=== PATIENT | male | born 1965 | race African-American/Black ===

== ENCOUNTER 2019-03-27 17:49 | Emergency (ER) | payer OTHER ==
[~2019-03-27] VITALS: Ht 170.2 cm; Wt 93.2 kg
[2019-03-27] MEDS ORDERED: PERCOCET 5MG/325MG TAB PO ONE (18:45)
[2019-03-27] MEDS ORDERED: LISI40TA PO (18:56)
[2019-03-27] MEDS ORDERED: FISH1000 PO (18:56)
[2019-03-27] MEDS ORDERED: ASPI81TA85 PO (18:56)
[2019-03-27] MEDS ORDERED: TRUL0.5I SC (18:56)
[2019-03-27] MEDS ORDERED: AMLO5TAB6 PO (18:56)
[2019-03-27] MEDS ORDERED: JARD1TAB PO (18:56)
[2019-03-27] MEDS ORDERED: METF10004 PO (18:56)
[2019-03-27] MEDS ORDERED: METO1TAB32 PO (18:56)
[2019-03-27] MEDS ORDERED: PERC5TAB12 PO (19:05)
[2019-03-27] MEDS ORDERED: OXYCODONE/APAP 5MG/325MG(BULK FOR ED) 1 TABLET PO ONE (19:45)
[2019-03-27 20:08] VITALS: BP 178/106
--- NOTE | 2019-03-27 20:31 | REPVR ---
EXAM: CT Right Lower Extremity Without Contrast, Knee EXAM DATE/TIME: 03/27/2019 7:04 PM CLINICAL HISTORY: 53 years old, male; Injury or trauma; Fall; Initial encounter; Blunt trauma; Knee; Right; Additional info: Fall no contrast TECHNIQUE: Imaging protocol: CT of the Right lower extremity without contrast was performed. Exam focused on the knee. Radiation optimization: All CT scans at this facility use at least one of these dose optimization techniques: automated exposure control; mA and/or kV adjustment per patient size (includes targeted exams where dose is matched to clinical indication); or iterative reconstruction. COMPARISON: CR Knee, complete RIGHT 03/27/2019 6:07 PM FINDINGS: Bones/joints: Comminuted fracture of the tibial plateau with intra-articular extension, and mildly displaced lateral fracture fragment. Small degree of lipohemarthrosis. Visualized fibula and femur are intact. The patella is intact. Soft tissues: Anterior and posterior soft tissue swelling of the knee. IMPRESSION: Comminuted fracture of the tibial plateau with intra-articular extension. Electronically signed by: Wilbur Vogel On 03/27/2019 20:31:03 PM
--- NOTE | 2019-03-28 07:14 | REP ---
RIGHT KNEE, FOUR VIEWS: Four views of the right knee are performed. There is a comminuted tibial plateau fracture. Predominately vertical fracture is seen involving both the medial and lateral tibial plateau with slight depression of the lateral tibial plateau. There is a small joint effusion. Incidental note is made of chondrocalcinosis. Electronically Signed by Valentin Castro MD 03/28/2019 11:54 P
== END 2019-03-27 20:09 | disposition home or self-care (01) ==
LOC: M ED 17:49
DX: S82.141A Displaced bicondylar fracture of right tibia, initial encounter for closed fracture (principal); W10.9XXA Fall (on) (from) unspecified stairs and steps, initial encounter; Y92.099 Unspecified place in other non-institutional residence as the place of occurrence of the external cause; Y93.9 Activity, unspecified; Y99.9 Unspecified external cause status; Z79.82 Long term (current) use of aspirin; Z79.84 Long term (current) use of oral hypoglycemic drugs; Z79.899 Other long term (current) drug therapy

== ENCOUNTER → 2019-07-17 | Outpatient (CLI) | payer OTHER ==
[~2019-07-17] MED LIST: AMLO5TAB6 PO; ASPI81TA85 PO; FISH1000 PO; JARD1TAB PO; LISI40TA PO; METF10004 PO; METO1TAB32 PO; PERC5TAB12 PO; TRUL0.5I SC
== END ==
LOC: M CARPUL 10:34
PROVIDERS: ATTEND Internal Medicine
DX: I51.7 Cardiomegaly (principal)

== ENCOUNTER 2019-09-11 15:02 | Emergency (ER) | payer OTHER ==
[~2019-09-11] VITALS: Ht 170.2 cm; Wt 97.6 kg
[2019-09-11] MEDS ORDERED: TRAZ-186 PO (16:44)
[2019-09-11] MEDS ORDERED: ROSU40TA4 PO (16:44)
[2019-09-11] MEDS ORDERED: OMEP10CASR PO (16:44)
[2019-09-11] MEDS ORDERED: VITA100054 PO (16:44)
[2019-09-11] MEDS ORDERED: SILD100T PO (16:44)
[2019-09-11] MEDS ORDERED: IBUP-1022 PO (16:44)
[2019-09-11] MEDS ORDERED: K-TA10TA2 PO (16:44)
[2019-09-11] MEDS ORDERED: GLIP10TA PO (16:44)
[2019-09-11] MEDS ORDERED: LOPR1TAB7 PO (16:44)
[2019-09-11] MEDS ORDERED: TRAM1CAP15 PO (16:44)
[2019-09-11] MEDS ORDERED: MULTCAP PO (16:44)
[2019-09-11] MEDS ORDERED: ACET325C5 PO (16:44)
--- NOTE | 2019-09-11 17:24 | REPVR ---
PROCEDURE INFORMATION: Exam: US Duplex Right Lower Extremity Veins, Limited Exam date and time: 09/11/2019 5:13 PM Age: 53 years old Clinical indication: Pain; Leg, upper; Right; Prior surgery; Surgery date: 1-6 months; Additional info: Pain to right upper hip, posterior leg bruising. TECHNIQUE: Imaging protocol: Real-time Duplex ultrasound of the Right Lower Extremity with 2-D schaeffer scale, color Doppler flow and spectral waveform analysis with image documentation. Limited exam was focused on the right lower extremity veins. COMPARISON: No relevant prior studies available. FINDINGS: Right deep veins: Unremarkable. The common femoral, femoral, proximal profunda femoral and popliteal veins are patent without thrombus. Normal Doppler waveforms. Normal compressibility and/or augmentation response. Right superficial veins: Unremarkable. Saphenofemoral junction is patent without thrombus. Soft tissues: Unremarkable. IMPRESSION: No DVT of the right lower extremity. Electronically signed by: Jama Padilla On 09/11/2019 17:24:02 PM
[2019-09-11] MEDS ORDERED: NS 1,000 ML IV ONE (17:30)
[2019-09-11] MEDS ORDERED: KETOROLAC 30 MG/ML VIAL (J1885) IV ONE (17:30)
[2019-09-11 18:05] LABS: HEMATOCRIT 45.4 % (42.0-52.0); HEMOGLOBIN 14.3 g/dl (13.5-17.5); MEAN CORPUSCULAR HEMOGLOBIN 28.3 pg (27.0-33.0); MEAN CORPUSCULAR HGB CONC 31.5 g/dl (32.0-36.5); MEAN CORPUSCULAR VOLUME 89.7 fl (80.0-96.0); PLATELET COUNT, AUTOMATED 354 10^3/uL (150-450); RED BLOOD COUNT 5.06 10^6/uL (4.30-6.10)
[2019-09-11 18:32] LABS: BLOOD UREA NITROGEN 8 MG/DL (7-18); CALCIUM LEVEL 10.1 MG/DL (8.5-10.1); CARBON DIOXIDE LEVEL 27 MEQ/L (21-32); CHLORIDE LEVEL 100 MEQ/L (98-107); CREATININE FOR GFR 0.95 MG/DL (0.70-1.30); GLOMERULAR FILTRATION RATE > 60.0 (>56); GLUCOSE, FASTING 174 MG/DL (70-100); POTASSIUM SERUM 3.5 MEQ/L (3.5-5.1); SODIUM LEVEL 134 MEQ/L (136-145)
[2019-09-11 18:47] LABS: ERYTHROCYTE SEDIMENTATION RATE 45 mm/hr (0-20)
[2019-09-11] MEDS ORDERED: ISOVUE-370 76% 100ML VIAL (Q9967) As Ordered ONE (19:02)
--- NOTE | 2019-09-11 20:22 | REPVR ---
PROCEDURE INFORMATION: Exam: CT Right Lower Extremity With Contrast, Hip Exam date and time: 09/11/2019 7:12 PM Age: 53 years old Clinical indication: Swelling, leg or foot; Additional info: CT hip with contrast R/O abscess TECHNIQUE: Imaging protocol: CT of the Right lower extremity with intravenous contrast was performed. Exam focused on the hip. Radiation optimization: All CT scans at this facility use at least one of these dose optimization techniques: automated exposure control; mA and/or kV adjustment per patient size (includes targeted exams where dose is matched to clinical indication); or iterative reconstruction. Contrast material: ISOVUE 370; Contrast volume: 100 ml; Contrast route: IV; COMPARISON: No relevant prior studies available. FINDINGS: Bones/joints: There is no evidence of bony abnormality. There is no evidence of osteomyelitis. Soft tissues: There is inflammation identified between the tensor fascia jos and vastus lateralis. No abscess is identified. Bladder: Normal urinary bladder. IMPRESSION: There is inflammation along the surface of the vastus lateralis proximal right femur. Electronically signed by: Siddhartha Doshi On 09/11/2019 20:22:36 PM
[2019-09-11] MEDS ORDERED: NAPR-837 PO (21:07)
[2019-09-11 21:31] VITALS: BP 173/104
--- NOTE | 2019-09-14 19:05 | ED PDOC ---
Post-Departure Follow-Up dr leonard faxed formal report of ct hip for fu Ashlee Perez MD Sep 14, 2019 19:05
== END 2019-09-11 21:37 | disposition home or self-care (01) ==
LOC: M ED 15:02
DX: M60.9 Myositis, unspecified (principal); M25.551 Pain in right hip; I10 Essential (primary) hypertension; E11.9 Type 2 diabetes mellitus without complications; Z79.899 Other long term (current) drug therapy; Z79.82 Long term (current) use of aspirin; Z79.84 Long term (current) use of oral hypoglycemic drugs
CPT/HCPCS: 36415; 73700; 80048; 85027; 85652; 93971; 96361; 96374; 99284; J1885; Q9967

== ENCOUNTER → 2021-07-04 | Outpatient (CLI) | payer OTHER ==
[~2021-07-04] MED LIST changes: +ACET325C5 PO; +AMLO1TAB24 PO; -AMLO5TAB6 PO; -ASPI81TA85 PO; +ASPI81TA86 PO; +GLIP10TA PO; +IBUP-1022 PO; +K-TA10TA2 PO; -LISI40TA PO; +LISI40TA4 PO; +LOPR1TAB7 PO; +MULTCAP PO; +NAPR-837 PO; +OMEP10CASR PO; +ROSU40TA4 PO; +SILD100T PO; +TRAM1CAP15 PO; +TRAZ-186 PO; +VITA100054 PO
== END ==
LOC: M LABSMTC 10:20
PROVIDERS: ATTEND Anesthesiology
DX: Z01.812 Encounter for preprocedural laboratory examination (principal); Z20.822 Contact with and (suspected) exposure to COVID-19

== ENCOUNTER → 2021-07-09 | Day surgery (SDC) | payer OTHER ==
[~2021-07-09] VITALS: Ht 170.2 cm; Wt 86.2 kg
[~2021-07-09] MED LIST changes: +METOPROLOL TARTRATE 100 MG TAB PO ONE; +NS 1,000 ML IV ONE; +amLODIPine 5 MG TAB PO ONE; +propofoL 200 MG/20 ML VIAL As Ordered ONE
--- OUTSIDE RECORDS SUMMARY | 2021-07-09 08:00 | CCD | Continuity of Care Document ---
Author Author Nathanael EDWARDS Organization Unknown Address [address], [address] [place] [address] Phone [phone] Care Team Providers Care Backroom Associate Name Role Phone Ata Pinzon M.D. AUTM [phone] AUTM Unavailable Problems Active Problems Provider Date Essential hypertension GABRIELLA Mortensen Onset: 05/15/2021 Social History Type Date Description Comments Sex Unknown ETOH Use 1-2 A Week Tobacco Use Start: Unknown Denies Smoking Recreational Drug Use Denies Drug Use Allergies and adverse reactions Description No Known Drug Allergies Medications Active Medications SIG Qnty Indications Ordering Provide r Date Aspirin Adult Low Dose 81mg Tablet s DR 1 tab by mouth twice a day Unknown 000 Lisinopril 40mg Tablets once daily Unknown Metformin HCL 1000mg Tablets One tab twice daily Unknown Trulicity 1.5mg/0.5ML Solution Pen -Inject once a week Unknown Amlodipine Besylate 5mg Tablets once daily Unknown Vitamin D High Potency 25mcg (1000 Ut) Capsules once daily Unknown Rosuvastatin Calcium 40mg Tablets 1 by mouth every day Unknown Immunizations Description No Information Available Vital Signs Date Vital Result Comment 05/15/2021 11:28am BP Systolic 138 mmHg BP Diastolic 82 mmHg Body Temperature 98.3 F Height 67 inches 5'7" Weight 200.00 lb BMI (Body Mass Index) 31.3 kg/m2 [place] Body Weight 148 lb Weight 90.720 kg BSA (Body Surface Area) 2.02 m2 Results Description No Information Available Procedures Description No Information Available Medical Devices Description No Information Available Encounters Description No Information Available Assessments Date Code Description Provider 05/15/2021 Z12.11 Encounter for screening for kayleigh gnant neoplasm of colon GABRIELLA Mortensen 05/15/2021 Z86.010 Personal history of colonic poly ps GABRIELLA Mortensen 05/15/2021 Z80.0 Family history of malignant neop lasm of digestive organs GABRIELLA Mortensen Plan of Treatment Future Appointment(s):* 07/22/2021 9:45 am - GABRIELLA Mortensen at [facility] * 07/09/2021 8:30 am - Valentin Marquez DO at [facility] 05/15/2021 - GABRIELLA Mortensen* Z12.11 Encounter for screening for malignant neoplasm of colon * Z86.010 Personal history of colonic polyps * Z80.0 Family history of malignant neoplasm of digestive organs Functional Status Description No Information Available Mental Status Description No Information Available Referrals Refer to Dr Reason for Referral Status Appt Date Valentin Marquez, D.O. COLONOSCOPY Scheduled 05/15/[address] [place] [id number] [phone]
--- OUTSIDE RECORDS SUMMARY | 2021-07-09 08:00 | CCD ---
Author Author [facility] Organization [facility] Address Unknown Phone Unavailable Care Team Providers Care Brazer Induction Name Role Phone Mitchell, L Serena RPA Unavailable Unavailable Mitchell, L Serena RPA Unavailable Unavailable Mitchell, L Serena RPA Unavailable Unavailable Mitchell, L Serena RPA Unavailable Unavailable Mitchell, L Serena RPA Unavailable Unavailable Mitchell, L Serena RPA Unavailable Unavailable Mitchell, L Serena RPA Unavailable Unavailable Mitchell, L Serena RPA Unavailable Unavailable Mitchell, L Serena RPA Unavailable Unavailable Mitchell, L Serena RPA Unavailable Unavailable Mitchell, L Serena RPA Unavailable Unavailable Mitchell, L Serena RPA Unavailable Unavailable Mitchell, L Serena RPA Unavailable Unavailable Mitchell, L Serena RPA Unavailable Unavailable Mitchell, L Serena RPA Unavailable Unavailable Mitchell, L Serena RPA Unavailable Unavailable Mitchell, L Serena RPA Unavailable Unavailable Mitchell, L Serena RPA Unavailable Unavailable Mitchell, L Serena RPA Unavailable Unavailable Mitchell, L Serena RPA Unavailable Unavailable Mitchell, L Serena RPA Unavailable Unavailable Mitchell, L Serena RPA Unavailable Unavailable Mitchell, L Serena RPA Unavailable Unavailable Mitchell, L Serena RPA Unavailable Unavailable Mitchell, L Serena RPA Unavailable Unavailable Mitchell, L Serena RPA Unavailable Unavailable Mitchell, L Serena RPA Unavailable Unavailable Mitchell, L Serena RPA Unavailable Unavailable Mitchell, L Serena RPA Unavailable Unavailable Mitchell, L Serena RPA Unavailable Unavailable Mitchell, L Serena RPA Unavailable Unavailable Mitchell, L Serena RPA Unavailable Unavailable Re-disclosure Warning The records that you are about to access may contain information from federally-assisted alcohol or drug abuse programs. If such information is present, then the following federally mandated warning applies: This information has been disclosed to you from records protected by federal confidentiality rules (42 CFR part 2). The federal rules prohibit you from making any further disclosure of this information unless further disclosure is expressly permitted by the written consent of the person to whom it pertains or as otherwise permitted by 42 CFR part 2. A general authorization for the release of medical or other information is NOT sufficient for this purpose. The Federal rules restrict any use of the information to criminally investigate or prosecute any alcohol or drug abuse patient.The records that you are about to access may contain highly sensitive health information, the redisclosure of which is protected by Article 27-F of the [facility] Public Health law. If you continue you may have access to information: Regarding HIV / AIDS; Provided by facilities licensed or operated by the [facility] Office of Mental Health; or Provided by the [facility] Office for People With Developmental Disabilities. If such information is present, then the following [facility] mandated warning applies: This information has been disclosed to you from confidential records which are protected by state law. State law prohibits you from making any further disclosure of this information without the specific written consent of the person to whom it pertains, or as otherwise permitted by law. Any unauthorized further disclosure in violation of state law may result in a fine or group home sentence or both. A general authorization for the release of medical or other information is NOT sufficient authorization for further disc losure. Encounters Encounter Providers Location Date Indications Data Source(s ) Outpatient Attender: Serena Hickman/Loy/Jones pierce 05/15/2021 11:15:00 AM EDT [facility] Medications No Information Insurance Providers Payer name Policy type / Coverage type Policy ID Covered libertarian ID Covered libertarian's relationship to anaya Policy Anaya Plan Information 'S ADMINISTRATION [id number] SP [id number] [employer] [place] CCN [id number] SP [id number] 61 'S ADMINISTRATION [id number] SP [id number] FORMERLY [facility] [id number] SP [id number] [facility] O [id number] S [id number] [employer] O [id number] S [id number] [employer] [place] [place] O [id number] S [id number] SELF PAY ONLY SP WPS [id number] [id number] SP [id number] WEST O [id number] S [id number] 61 EAST HUMANA [id number] SP [id number] [facility]/136E O [id number] S [id number] [facility] [place] [facility] P [id number] S [id number] Problems, Conditions, and Diagnoses Code Display Name Description Problem Type Effective Dates Data Source(s) 90887953 Essential hypertension Essential hypertension Problem 05/15/2021 12:00:00 AM EDT [facility] ([facility]) Surgeries/Procedures Procedure Description Date Indications Data Source(s) OFFICE OUTPATIENT NEW 45 MINUTES 05/15/2021 12:00:00 A M [facility] ([facility]) Results ID Date Data Source [id number] 07/04/2021 10:15:00 AM EST [facility] Name Value Range Interpretation Code Description Data Dana rce(s) Supporting Document(s) SARS-CoV-2 (COVID-19) RNA [Presence] in Respiratory specimen by CHANA with probe detection Not Detected [facility] This lab was ordered by [facility] and reported by [employer]. Procedure Social History No Information Vital Signs ID Date Data Source UNK Name Value Range Interpretation Code Description Data Source(s) Body weight 200.00 [lb_av] 200.00 [lb_av] [facility] Body mass index (BMI) [Ratio] 31.3 kg/m2 31.3 k g/m2 [facility] ([facility]) [place] body weight 148 [lb_av] 148 [lb_av] [facility] Body weight 90.720 kg 90.720 kg [facility] ([facility]) Body surface area Derived from formula 2.02 m2 2.02 m2 [facility] ([facility]) Systolic blood pressure 138 mm[Hg] 138 mm[Hg] [facility] ([facility]) Diastolic blood pressure 82 mm[Hg] 82 mm[Hg] [facility] ([facility] ) Body temperature 98.3 [degF] 98.3 [degF] [facility], ) Body height 67 [in_i] 67 [in_i] [facility], ) 5'7"
--- OUTSIDE RECORDS SUMMARY | 2021-07-09 08:00 | CCD | Continuity of Care Document ---
Author Author Nathanael EDWARDS Organization Unknown Address [address], [address] [place] [address] Phone [phone] Care Team Providers Care Clinical Services Assistant Name Role Phone Ata Pinzon M.D. AUTM [phone] AUTM Unavailable Problems Active Problems Provider Date [...] lb BMI (Body Mass Index) 31.3 kg/m2 [place] Body Weight 148 lb Weight 90.720 kg [...] 07/22/2021 9:45 am - GABRIELLA Mortensen at [facility] * 07/09/2021 8:30 am - Valentin Marquez DO at [facility] 05/15/2021 - GABRIELLA Mortensen* Z12.11 Encounter for screening for malignant neoplasm of colon * Z86.010 Personal history of colonic polyps * Z80.0 Family history of malignant neoplasm of digestive organs Functional Status Description No Information Available Mental Status Description No Information Available Referrals Refer to Dr Reason for Referral Status Appt Date Valentin Marquez, D.O. COLONOSCOPY Scheduled 05/15/[address] [place] [address] [phone]
--- OUTSIDE RECORDS SUMMARY | 2021-07-09 08:00 | CCD | Continuity of Care Document ---
Author Author Nathanael EDWARDS Organization Unknown Address [address], [address] [place] [address] Phone [phone] Care Team Providers Care Head Holder Name Role Phone Ata Pinzon M.D. AUTM [phone] AUTM Unavailable Problems Active Problems Provider Date [...] lb BMI (Body Mass Index) 31.3 kg/m2 [place] Body Weight 148 lb Weight 90.720 kg [...] 07/22/2021 9:45 am - GABRIELLA Mortensen at [facility] * 07/09/2021 8:30 am - Valentin Marquez DO at [facility] 05/15/2021 - GABRIELLA Mortensen* Z12.11 Encounter for screening for malignant neoplasm of colon * Z86.010 Personal history of colonic polyps * Z80.0 Family history of malignant neoplasm of digestive organs Functional Status Description No Information Available Mental Status Description No Information Available Referrals Refer to Dr Reason for Referral Status Appt Date Valentin Marquez, D.O. COLONOSCOPY Scheduled 05/15/[address] [place] [address] [phone]
--- OUTSIDE RECORDS SUMMARY | 2021-07-09 08:00 | CCD | Continuity of Care Document ---
Author Author Nathanael EDWARDS Organization Unknown Address [address], [address] [place] [address] Phone [phone] Care Team Providers Care [employer] Name Role Phone Ata Pinzon M.D. AUTM [phone] AUTM Unavailable Problems Active Problems Provider Date [...] lb BMI (Body Mass Index) 31.3 kg/m2 [place] Body Weight 148 lb Weight 90.720 kg BSA (Body Surface Area) 2.02 m2 Results Description No Information Available Procedures Date Code Description Status 05/15/2021 [address] Office/Outpatient New Moderate M DM 45-59 Minutes Completed Medical Devices Description No Information Available Encounters Type Date Location Provider Dx Diagnosis Office Visit 05/15/2021 11:15a [facility] GABRIELLA Louis Z12.11 Encounter for screening for malignant ne oplasm of colon Z86.010 Personal history of colonic polyps Z80.0 Family history of malignant neoplasm of digestive organs Assessments Date Code Description Provider 05/15/2021 Z12.11 Encounter for screening for kayleigh gnant neoplasm of colon GABRIELLA Mortensen 05/15/2021 Z86.010 Personal history of colonic poly ps GABRIELLA Mortensen 05/15/2021 Z80.0 Family history of malignant neop lasm of digestive organs GABRIELLA Mortensen Plan of Treatment Future Appointment(s):* 07/22/2021 9:45 am - GABRIELLA Mortensen at [facility] * 07/09/2021 8:30 am - Valentin Marquez DO at [facility] 05/15/2021 - GABRIELLA Mortensen* Z12.11 Encounter for screening for malignant neoplasm of colon * Z86.010 Personal history of colonic polyps * Z80.0 Family history of malignant neoplasm of digestive organs Functional Status Description No Information Available Mental Status Description No Information Available Referrals Refer to Reason for Referral Status Appt Date Valentin Marquez D.O. COLONOSCOPY Scheduled 05/15/[address] [place] [address] [phone]
[2021-07-09 08:39] VITALS: BP 143/87
--- NOTE | 2021-07-09 09:28 | ROOR ---
Patient Name: Nathanael Brizuela Procedure Date: 07/09/2021 8:54 AM Date of : 1965 Age: 55 Room: [facility] Gender: Male Note Status: Finalized Procedure: Colonoscopy Indications: High risk colon cancer surveillance: Personal history of colonic polyps Providers: DO Alan Kumar MD: [facility], Admin. Requesting Provider: Medicines: Propofol per Anesthesia Complications: No immediate complications. Procedure: Pre-Anesthesia Assessment: - Prior to the procedure, a History and Physical was performed, and patient medications and allergies were reviewed. The patient is competent. The risks and benefits of the procedure and the sedation options and risks were discussed with the patient. All questions were answered and informed consent was obtained. Patient identification and proposed procedure were verified by the physician, the nurse, the anesthesiologist and the air launch weapons technician in the endoscopy suite. Mental Status Examination: alert and oriented. Airway Examination: normal oropharyngeal airway and neck mobility. Respiratory Examination: clear to auscultation. CV Examination: normal. Prophylactic Antibiotics: The patient does not require prophylactic antibiotics. Prior Anticoagulants: The patient has taken no previous anticoagulant or antiplatelet agents. ASA Grade Assessment: III - A patient with severe systemic disease. After reviewing the risks and benefits, the patient was deemed in satisfactory condition to undergo the procedure. The anesthesia plan was to use monitored anesthesia care (MAC). Immediately prior to administration of medications, the patient was re-assessed for adequacy to receive sedatives. The heart rate, respiratory rate, oxygen saturations, blood pressure, adequacy of pulmonary ventilation, and response to care were monitored throughout the procedure. The physical status of the patient was re-assessed after the procedure. The Colonoscope was introduced through the anus and advanced to the cecum, identified by appendiceal orifice and ileocecal valve. The colonoscopy was performed without difficulty. The patient tolerated the procedure well. Findings: A less than 5 mm polyp was found in the distal transverse colon. The polyp was hyperplastic. The polyp was removed with a jumbo cold forceps. Resection and retrieval were complete. Estimated blood loss was minimal. Non-bleeding internal hemorrhoids were found during retroflexion. The hemorrhoids were Grade II (internal hemorrhoids that prolapse but reduce spontaneously). Multiple small and large-mouthed diverticula were found in the sigmoid colon and descending colon. Impression: - One less than 5 mm polyp in the distal transverse colon, removed with a jumbo cold forceps. Resected and retrieved. - Non-bleeding internal hemorrhoids. - Diverticulosis in the sigmoid colon and in the descending colon. Recommendation: - Patient has a contact number available for emergencies. The signs and symptoms of potential delayed complications were discussed with the patient. Return to normal activities tomorrow. Written discharge instructions were provided to the patient. - Await pathology results. - Repeat colonoscopy in 5-10 years for surveillance based on pathology results. - Return to my office at appointment to be scheduled. Procedure Code(s): --- Professional --- 37966, Colonoscopy, flexible; with biopsy, single or multiple Diagnosis Code(s): --- Professional --- Z86.010, Personal history of colonic polyps K63.5, Polyp of colon K64.1, Second degree hemorrhoids K57.30, Diverticulosis of large intestine without perforation or abscess without bleeding CPT copyright 2019 [employer]. All rights reserved. The codes documented in this report are preliminary and upon office 365 consultant review may be revised to meet current compliance requirements. Valentin Marquez DO 07/09/2021 9:27:39 AM Electronically signed by Valentin Marquez DO Number of Addenda: 0 Note Initiated On: 07/09/2021 8:54 AM Estimated Blood Loss: Estimated blood loss was minimal.
[2021-07-09 09:45] VITALS: BP 137/90
== END | disposition home or self-care (01) ==
LOC: M OPP 07:56
PROVIDERS: ATTEND Surgery
DX: Z12.11 Encounter for screening for malignant neoplasm of colon (principal); Z86.010 Personal history of colon polyps; Z80.0 Family history of malignant neoplasm of digestive organs; K63.5 Polyp of colon; K64.1 Second degree hemorrhoids; K57.30 Diverticulosis of large intestine without perforation or abscess without bleeding; G47.30 Sleep apnea, unspecified; E11.9 Type 2 diabetes mellitus without complications; Z79.4 Long term (current) use of insulin; Z79.82 Long term (current) use of aspirin; Z79.899 Other long term (current) drug therapy

== ENCOUNTER 2022-10-06 22:17 | Inpatient (IN) | payer OTHER ==
[~2022-10-06] VITALS: Ht 170.2 cm; Wt 85.5 kg
[~2022-10-06 22:17] MED LIST changes: -METOPROLOL TARTRATE 100 MG TAB PO ONE; -NS 1,000 ML IV ONE; -amLODIPine 5 MG TAB PO ONE; -propofoL 200 MG/20 ML VIAL As Ordered ONE
[2022-10-06 23:10] LABS: BASO % 0.2 % (0.0-1.0); HEMATOCRIT 49.5 % (42.0-52.0); HEMOGLOBIN 15.5 g/dl (13.5-17.5); LYMPH # 0.6 10^3/uL (1.5-5.0); LYMPH % 3.8 % (24.0-44.0); MEAN CORPUSCULAR HEMOGLOBIN 29.3 pg (27.0-33.0); MEAN CORPUSCULAR HGB CONC 31.3 g/dl (32.0-36.5); MEAN CORPUSCULAR VOLUME 93.6 fl (80.0-96.0); MONO # 1.2 10^3/uL (0.0-0.8); MONO % 8.4 % (2.0-8.0); NEUTROPHILS # 12.5 10^3/uL (1.5-8.5); NEUTROPHILS % 86.6 % (36.0-66.0); PLATELET COUNT, AUTOMATED 310 10^3/uL (150-450); RED BLOOD COUNT 5.29 10^6/uL (4.30-6.10); WHITE BLOOD COUNT 14.4 10^3/uL (4.0-10.0)
[2022-10-06 23:35] LABS: INR 1.02; PROTHROMBIN TIME 13.6 SECONDS (12.5-14.5)
[2022-10-06 23:39] LABS: CK-MB VALUE MASS < 1.0 NG/ML (<3.6); LIPASE 583 U/L (12-53)
[2022-10-06 23:41] LABS: CPK CREATINE PHOSPHOKINASE 150 U/L (46-171); MB/CK RELATIVE INDEX 0.66 (< OR =4)
[2022-10-06 23:43] LABS: THYROID STIMULATING HORMONE 2.746 uIU/ML (0.55-4.78)
[2022-10-06 23:51] LABS: ALBUMIN 4.4 G/DL (3.2-5.2); ALKALINE PHOSPHATASE 98 U/L (46-116); ALT/SGPT 62 U/L (7.0-40); AST/SGOT 63 U/L (<34); BILIRUBIN,DIRECT 0.2 MG/DL (<0.4); BILIRUBIN,TOTAL 0.5 MG/DL (0.3-1.2); BLOOD UREA NITROGEN 28 MG/DL (9-23); CALCIUM LEVEL 9.7 MG/DL (8.5-10.1); CHLORIDE LEVEL 90 MMOL/L (98-107); CREATININE FOR GFR 1.56 MG/DL (0.70-1.30); GLOMERULAR FILTRATION RATE 59.5 (>56); SODIUM LEVEL 132 MMOL/L (136-145); TOTAL PROTEIN 9.4 G/DL (5.7-8.2)
[2022-10-06 23:54] LABS: CARBON DIOXIDE LEVEL < 10.0 MMOL/L (20-31); GLUCOSE, FASTING 508 MG/DL (60-100)
[2022-10-06 23:55] LABS: POTASSIUM SERUM 6.4 MMOL/L (3.5-5.1)
[2022-10-06] MEDS ORDERED: MORPHINE 4 MG/ML 1ML VIAL IV ONE (23:55)
[2022-10-06] MEDS ORDERED: ONDANSETRON 4MG 2ML VIAL IV ONE (23:55)
[2022-10-06] MEDS ORDERED: HumuLIN R (REGULAR) INSULIN (NovoLIN R) **100U/ML** PER UNIT IV ONE (23:55)
[2022-10-07] VITALS (19 sets, daily range): BP systolic 100–168; BP diastolic 56–92
[2022-10-07] MEDS ORDERED: NS 1,000 ML IV ONE
[2022-10-07] MEDS ORDERED: ISOVUE-370 76% 100ML VIAL As Ordered ONE (00:56)
[2022-10-07 01:09] LABS: ACETONE/KETONE > 4.50 MMOL/L (0.02-0.27)
[2022-10-07] MEDS ORDERED: INSULIN IV RATE CHANGE DOCUMENTATION ML/HR XX SCH ×2 (01:20→11:25)
[2022-10-07] MEDS ORDERED: INSULIN REGULAR IN 0.9 % NACL 100 UNIT in IV 1 EA IV SCH ×6 (01:20→11:25)
[2022-10-07] MEDS ORDERED: MORPHINE 4 MG/ML 1ML VIAL IV ONE (01:45)
[2022-10-07 02:08] LABS: CK-MB VALUE MASS < 1.0 NG/ML (<3.6); CPK CREATINE PHOSPHOKINASE 140 U/L (46-171); MB/CK RELATIVE INDEX 0.71 (< OR =4)
[2022-10-07 02:50] LABS: RSV AMPLIFICATION NEGATIVE (NEGATIVE)
[2022-10-07] MEDS ORDERED: GLUCOSE 4GM CHEW TABLET PO PRN (02:55)
[2022-10-07] MEDS ORDERED: DEXTROSE 50% 50ML SYRINGE IV PRN (02:55)
[2022-10-07] MEDS ORDERED: GLUCAGON INJ 1MG VIAL SC PRN (02:55)
[2022-10-07] MEDS ORDERED: MORPHINE 2 MG/ML 1ML VIAL IV PRN (03:15)
[2022-10-07 03:48] LABS: VENOUS BASE EXCESS -9.9 (-2.0-2.0); VENOUS HCO3 14.9 MEQ/L (23.0-27.0); VENOUS O2 SATURATION 90.8 % (60.0-80.0); VENOUS PARTIAL PRESSURE CO2 30.5 mmHg (38.0-50.0); VENOUS PH 7.307 UNITS (7.330-7.430); VENOUS STANDARD HCO3 16.7 MEQ/L; VENOUS TOTAL CO2 15.8 MEQ/L (24.0-28.0)
[2022-10-07 04:01] LABS: HEMOGLOBIN A1c 9.9 % (4.0-6.0)
[2022-10-07 04:10] LABS: OSMOLALITY SERUM 327 MOSM/KG (275-295)
[2022-10-07] MEDS: cefTRIAXone SOD 1 GM in D5W MINI-BAG PLUS 50 ML IV SCH (04:21)
[2022-10-07 04:23] LABS: BLOOD UREA NITROGEN 29 MG/DL (9-23); CALCIUM LEVEL 9.1 MG/DL (8.5-10.1); CARBON DIOXIDE LEVEL 15 MMOL/L (20-31); CHLORIDE LEVEL 99 MMOL/L (98-107); CREATININE FOR GFR 1.42 MG/DL (0.70-1.30); GLOMERULAR FILTRATION RATE > 60.0 (>56); GLUCOSE, FASTING 204 MG/DL (60-100); PHOSPHORUS LEVEL 2.4 MG/DL (2.5-4.9); POTASSIUM SERUM 6.8 MMOL/L (3.5-5.1); SODIUM LEVEL 135 MMOL/L (136-145); TRIGLYCERIDES LEVEL 151 MG/DL (<150)
[2022-10-07] MEDS ORDERED: LANO454C TOP (04:48)
[2022-10-07] MEDS ORDERED: VITMTA PO (04:48)
[2022-10-07] MEDS ORDERED: VITA100093 PO (04:48)
[2022-10-07] MEDS ORDERED: TRAZ-186 PO (04:48)
[2022-10-07] MEDS ORDERED: CVS1CRE56 EXT (04:48)
[2022-10-07] MEDS ORDERED: JARD1TAB3 PO (04:48)
[2022-10-07] MEDS ORDERED: MAGN400T2 PO (04:48)
[2022-10-07] MEDS ORDERED: ALEN35TA56 PO (04:48)
[2022-10-07] MEDS ORDERED: MICO85PO7 TOP (04:48)
[2022-10-07] MEDS ORDERED: OMEP-173 PO (04:48)
[2022-10-07] MEDS ORDERED: CINN500C2 PO (04:48)
[2022-10-07] MEDS ORDERED: DHEA50CA4 PO (04:48)
[2022-10-07] MEDS ORDERED: ASPI-161 PO (04:48)
[2022-10-07] MEDS ORDERED: AMLO1TAB25 PO (04:48)
[2022-10-07] MEDS ORDERED: FISH10002 PO (04:48)
[2022-10-07] MEDS ORDERED: ROSU40TA4 PO (04:48)
[2022-10-07] MEDS ORDERED: NESI25TA PO (04:48)
[2022-10-07] MEDS ORDERED: DEXT4TAB15 PO (04:48)
[2022-10-07] MEDS ORDERED: CALC250T PO (04:48)
[2022-10-07] MEDS ORDERED: METO200T28 PO (04:48)
[2022-10-07] MEDS ORDERED: ZETI10TA16 PO (04:48)
[2022-10-07] MEDS ORDERED: SILD100T PO (04:48)
[2022-10-07] MEDS ORDERED: PERI12LIQ SSP (04:48)
[2022-10-07] MEDS ORDERED: REFR0.5D8 OU (04:48)
[2022-10-07] MEDS ORDERED: HOME MED LIST COMPLETE! XX SCH (04:50)
[2022-10-07] MEDS ORDERED: POTASSIUM CHLORIDE INJ 20 MEQ in LR 1,000 ML IV SCH (05:00)
[2022-10-07] MEDS: INSULIN IV RATE CHANGE DOCUMENTATION ML/HR XX SCH ×4 (05:08→10:21)
[2022-10-07] MEDS: HEPARIN SOD (PORCINE) 5000UNITS/ML 1ML VIAL/SYRINGE SC SCH ×3 (06:00→22:09)
[2022-10-07 06:54] LABS: VENOUS BASE EXCESS -8.3 (-2.0-2.0); VENOUS HCO3 13.5 MEQ/L (23.0-27.0); VENOUS O2 SATURATION 99.7 % (60.0-80.0); VENOUS PARTIAL PRESSURE CO2 21.4 mmHg (38.0-50.0); VENOUS PARTIAL PRESSURE O2 240.9 mmHg (30.0-50.0); VENOUS PH 7.417 UNITS (7.330-7.430); VENOUS TOTAL CO2 14.1 MEQ/L (24.0-28.0)
[2022-10-07] MEDS ORDERED: KCL 20MEQ IN D5/0.45NS 1000ML 1,000 ML IV SCH (06:55)
[2022-10-07 07:00] LABS: CALCIUM LEVEL 9.4 MG/DL (8.5-10.1); CREATININE FOR GFR 1.56 MG/DL (0.70-1.30); GLOMERULAR FILTRATION RATE 59.5 (>56); POTASSIUM SERUM 4.4 MMOL/L (3.5-5.1)
[2022-10-07] MEDS ORDERED: GI COCKTAIL 50ML BTL(HYOSCYAMINE/MAALOX/LIDOCAINE VISCOUS)(1:3:1) PO PRN (08:00)
[2022-10-07] MEDS: PANTOPRAZOLE 40MG VIAL IV SCH (08:03)
[2022-10-07] MEDS: MORPHINE 2 MG/ML 1ML VIAL IV PRN ×2 (08:29→22:10)
[2022-10-07 08:57] LABS: BASO % 0.3 % (0.0-1.0); EOS # 0.5 10^3/uL (0.0-0.5); EOS % 3.8 % (0.0-3.0); HEMATOCRIT 45.9 % (42.0-52.0); LYMPH # 0.8 10^3/uL (1.5-5.0); LYMPH % 5.4 % (24.0-44.0); MEAN CORPUSCULAR HEMOGLOBIN 29.8 pg (27.0-33.0); MEAN CORPUSCULAR HGB CONC 32.7 g/dl (32.0-36.5); MEAN CORPUSCULAR VOLUME 91.3 fl (80.0-96.0); MONO % 14.9 % (2.0-8.0); NEUTROPHILS # 10.4 10^3/uL (1.5-8.5); NEUTROPHILS % 74.9 % (36.0-66.0); PLATELET COUNT, AUTOMATED 214 10^3/uL (150-450); RED BLOOD COUNT 5.03 10^6/uL (4.30-6.10); WHITE BLOOD COUNT 13.9 10^3/uL (4.0-10.0)
[2022-10-07 09:22] LABS: MONO # 2.1 10^3/uL (0.0-0.8)
[2022-10-07 10:06] LABS: APPEARANCE, URINE CLEAR (CLEAR); BACTERIA, URINE AUTO NEGATIVE (NEGATIVE); BILIRUBIN, URINE AUTO NEGATIVE (NEGATIVE); BLOOD, URINE BLOOD 2+ (NEGATIVE); COLOR, URINE YELLOW (YELLOW); GLUCOSE, URINE (UA) AUTO 3+ mg/dL (NEGATIVE); KETONE, URINE AUTO 2+ mg/dL (NEGATIVE); LEUKOCYTE ESTERASE, URINE AUTO NEGATIVE (NEGATIVE); MUCUS, URINE SMALL (NEGATIVE); NITRITE, URINE AUTO NEGATIVE (NEGATIVE); PROTEIN, URINE AUTO 2+ mg/dL (NEGATIVE); RBC, URINE AUTO 0 /HPF (0-3); SPECIFIC GRAVITY URINE AUTO 1.042 (1.002-1.035); SQUAMOUS EPITHELIAL CELL UR AU 0 /HPF (0-6); UROBILINOGEN, URINE AUTO 0.2 mg/dL (0.0-2.0); WBC, URINE AUTO 0 /HPF (0-3)
[2022-10-07 10:11] LABS: VENOUS BASE EXCESS -8.6 (-2.0-2.0); VENOUS HCO3 15.3 MEQ/L (23.0-27.0); VENOUS O2 SATURATION 99.4 % (60.0-80.0); VENOUS PARTIAL PRESSURE CO2 28.3 mmHg (38.0-50.0); VENOUS PARTIAL PRESSURE O2 212.3 mmHg (30.0-50.0); VENOUS PH 7.351 UNITS (7.330-7.430); VENOUS STANDARD HCO3 17.7 MEQ/L; VENOUS TOTAL CO2 16.2 MEQ/L (24.0-28.0)
[2022-10-07] MEDS: ONDANSETRON 4MG 2ML VIAL IV PRN (10:18)
[2022-10-07 11:12] LABS: CALCIUM LEVEL 9.2 MG/DL (8.5-10.1); CREATININE FOR GFR 1.65 MG/DL (0.70-1.30); GLOMERULAR FILTRATION RATE 55.8 (>56); POTASSIUM SERUM 4.5 MMOL/L (3.5-5.1)
[2022-10-07] MEDS ORDERED: LR 1,000 ML IV ONE (11:20)
[2022-10-07] MEDS ORDERED: PROMETHAZINE 25MG/ML 1ML VIAL IV ONE (12:00)
[2022-10-07] MEDS: POTASSIUM CHLORIDE INJ 20 MEQ in D5W/LR 1,000 ML IV SCH ×4 (12:06→19:25)
[2022-10-07] MEDS ORDERED: POTASSIUM CHLORIDE INJ 20 MEQ in D5W/LR 1,000 ML IV SCH (12:30)
[2022-10-07 13:42] LABS: BLOOD UREA NITROGEN 31 MG/DL (9-23); CARBON DIOXIDE LEVEL 21 MMOL/L (20-31); CHLORIDE LEVEL 102 MMOL/L (98-107); CREATININE FOR GFR 1.51 MG/DL (0.70-1.30); GLOMERULAR FILTRATION RATE > 60.0 (>56); GLUCOSE, FASTING 110 MG/DL (60-100); SODIUM LEVEL 139 MMOL/L (136-145)
[2022-10-07 16:47] LABS: BLOOD UREA NITROGEN 26 MG/DL (9-23); CALCIUM LEVEL 8.8 MG/DL (8.5-10.1); CARBON DIOXIDE LEVEL 22 MMOL/L (20-31); CHLORIDE LEVEL 102 MMOL/L (98-107); CREATININE FOR GFR 1.27 MG/DL (0.70-1.30); GLOMERULAR FILTRATION RATE > 60.0 (>56); GLUCOSE, FASTING 149 MG/DL (60-100); POTASSIUM SERUM 4.2 MMOL/L (3.5-5.1); SODIUM LEVEL 137 MMOL/L (136-145)
[2022-10-07 20:01] LABS: BLOOD UREA NITROGEN 22 MG/DL (9-23); CALCIUM LEVEL 9.1 MG/DL (8.5-10.1); CARBON DIOXIDE LEVEL 20 MMOL/L (20-31); CHLORIDE LEVEL 102 MMOL/L (98-107); CREATININE FOR GFR 1.08 MG/DL (0.70-1.30); GLOMERULAR FILTRATION RATE > 60.0 (>56); GLUCOSE, FASTING 184 MG/DL (60-100); POTASSIUM SERUM 4.4 MMOL/L (3.5-5.1); SODIUM LEVEL 138 MMOL/L (136-145)
[2022-10-08] VITALS (16 sets, daily range): BP systolic 136–195; BP diastolic 80–110
[2022-10-08 01:04] LABS: BLOOD UREA NITROGEN 11 MG/DL (9-23); CALCIUM LEVEL 9.2 MG/DL (8.5-10.1); CARBON DIOXIDE LEVEL 24 MMOL/L (20-31); CHLORIDE LEVEL 103 MMOL/L (98-107); CREATININE FOR GFR 0.86 MG/DL (0.70-1.30); GLOMERULAR FILTRATION RATE > 60.0 (>56); GLUCOSE, FASTING 168 MG/DL (60-100); POTASSIUM SERUM 4.1 MMOL/L (3.5-5.1); SODIUM LEVEL 137 MMOL/L (136-145)
[2022-10-08] MEDS: LEVEMIR (INSULIN DETEMIR) 1 UNITS/0.01ML SC SCH (01:49)
[2022-10-08] MEDS: MORPHINE 2 MG/ML 1ML VIAL IV PRN ×2 (02:06→06:44)
[2022-10-08] MEDS ORDERED: NS 0.45% 1,000 ML IV SCH (03:30)
[2022-10-08] MEDS: cefTRIAXone SOD 1 GM in D5W MINI-BAG PLUS 50 ML IV SCH (05:04)
[2022-10-08] MEDS: HEPARIN SOD (PORCINE) 5000UNITS/ML 1ML VIAL/SYRINGE SC SCH ×3 (05:06→21:59)
[2022-10-08 05:18] LABS: BASO % 0.3 % (0.0-1.0); EOS % 0.2 % (0.0-3.0); HEMATOCRIT 42.6 % (42.0-52.0); HEMOGLOBIN 14.3 g/dl (13.5-17.5); LYMPH # 0.8 10^3/uL (1.5-5.0); LYMPH % 7.1 % (24.0-44.0); MEAN CORPUSCULAR HEMOGLOBIN 29.6 pg (27.0-33.0); MEAN CORPUSCULAR HGB CONC 33.6 g/dl (32.0-36.5); MEAN CORPUSCULAR VOLUME 88.2 fl (80.0-96.0); MONO # 1.2 10^3/uL (0.0-0.8); MONO % 10.9 % (2.0-8.0); NEUTROPHILS # 9.1 10^3/uL (1.5-8.5); PLATELET COUNT, AUTOMATED 174 10^3/uL (150-450); RED BLOOD COUNT 4.83 10^6/uL (4.30-6.10); WHITE BLOOD COUNT 11.2 10^3/uL (4.0-10.0)
[2022-10-08 05:53] LABS: BLOOD UREA NITROGEN 10 MG/DL (9-23); CALCIUM LEVEL 8.9 MG/DL (8.5-10.1); CARBON DIOXIDE LEVEL 24 MMOL/L (20-31); CHLORIDE LEVEL 102 MMOL/L (98-107); CREATININE FOR GFR 0.79 MG/DL (0.70-1.30); GLOMERULAR FILTRATION RATE > 60.0 (>56); GLUCOSE, FASTING 141 MG/DL (60-100); MAGNESIUM LEVEL 1.8 MG/DL (1.8-2.4); PHOSPHORUS LEVEL 1.3 MG/DL (2.5-4.9); SODIUM LEVEL 137 MMOL/L (136-145)
[2022-10-08] MEDS ORDERED: GLUCOSE 4GM CHEW TABLET PO PRN (08:40)
[2022-10-08] MEDS ORDERED: DEXTROSE 50% 50ML SYRINGE IV PRN (08:40)
[2022-10-08] MEDS ORDERED: GLUCAGON INJ 1MG VIAL SC PRN (08:40)
[2022-10-08] MEDS: PANTOPRAZOLE 40MG VIAL IV SCH (09:03)
[2022-10-08 09:48] LABS: LIPASE 1214 U/L (12-53)
[2022-10-08] MEDS ORDERED: traZODone 50 MG TAB PO PRN (10:20)
[2022-10-08] MEDS: ONDANSETRON 4MG 2ML VIAL IV PRN (11:23)
[2022-10-08] MEDS: ROSUVASTATIN 10 MG TAB (CRESTOR) PO SCH (11:23)
[2022-10-08] MEDS: HYDROMORPHONE HCL 0.5 MG/ 0.5 ML SYRINGE IV PRN ×3 (11:25→22:05)
[2022-10-08] MEDS: KCL 20MEQ in NS 1000ML 1,000 ML IV SCH ×3 (11:26→21:59)
[2022-10-08] MEDS: EZETIMIBE 10MG TABLET (ZETIA) PO SCH (11:29)
[2022-10-08] MEDS: INSULIN LISPRO (NovoLOG) PER UNIT SC SCH ×2 (11:30→17:48)
[2022-10-08] MEDS ORDERED: hydrALAZINE 20MG/ML 1ML VIAL IV ONE (22:15)
[2022-10-09] VITALS (7 sets, daily range): BP systolic 145–172; BP diastolic 78–97
[2022-10-09] MEDS: KCL 20MEQ in NS 1000ML 1,000 ML IV SCH ×2 (02:50→03:19)
[2022-10-09] MEDS: cefTRIAXone SOD 1 GM in D5W MINI-BAG PLUS 50 ML IV SCH (04:34)
[2022-10-09] MEDS: HYDROMORPHONE HCL 0.5 MG/ 0.5 ML SYRINGE IV PRN ×7 (04:35→23:54)
[2022-10-09 05:18] LABS: BASO % 0.2 % (0.0-1.0); EOS % 0.1 % (0.0-3.0); HEMATOCRIT 38.9 % (42.0-52.0); HEMOGLOBIN 12.8 g/dl (13.5-17.5); LYMPH # 1.4 10^3/uL (1.5-5.0); LYMPH % 10.2 % (24.0-44.0); MEAN CORPUSCULAR HEMOGLOBIN 29.8 pg (27.0-33.0); MEAN CORPUSCULAR HGB CONC 32.9 g/dl (32.0-36.5); MEAN CORPUSCULAR VOLUME 90.5 fl (80.0-96.0); MONO % 13.3 % (2.0-8.0); NEUTROPHILS # 10.1 10^3/uL (1.5-8.5); NEUTROPHILS % 75.7 % (36.0-66.0); PLATELET COUNT, AUTOMATED 149 10^3/uL (150-450); WHITE BLOOD COUNT 13.4 10^3/uL (4.0-10.0)
[2022-10-09 05:41] LABS: LIPASE 420 U/L (12-53)
[2022-10-09] MEDS: HEPARIN SOD (PORCINE) 5000UNITS/ML 1ML VIAL/SYRINGE SC SCH ×3 (05:44→21:08)
[2022-10-09 05:49] LABS: ALBUMIN 2.6 G/DL (3.2-5.2); ALKALINE PHOSPHATASE 70 U/L (46-116); ALT/SGPT 31 U/L (7.0-40); AST/SGOT 38 U/L (<34); BILIRUBIN,TOTAL 0.5 MG/DL (0.3-1.2); BLOOD UREA NITROGEN 8 MG/DL (9-23); CARBON DIOXIDE LEVEL 16 MMOL/L (20-31); CHLORIDE LEVEL 102 MMOL/L (98-107); CREATININE FOR GFR 0.73 MG/DL (0.70-1.30); GLOMERULAR FILTRATION RATE > 60.0 (>56); GLUCOSE, FASTING 140 MG/DL (60-100); MAGNESIUM LEVEL 1.7 MG/DL (1.8-2.4); PHOSPHORUS LEVEL 1.5 MG/DL (2.5-4.9); POTASSIUM SERUM 4.4 MMOL/L (3.5-5.1); SODIUM LEVEL 136 MMOL/L (136-145); TOTAL PROTEIN 6.3 G/DL (5.7-8.2)
[2022-10-09 05:56] LABS: MONO # 1.8 10^3/uL (0.0-0.8)
[2022-10-09] MEDS ORDERED: MAG SULF 1GM/100ML (MAG RUN) 1 GM in IV 1 EA IV ONE (08:00)
[2022-10-09] MEDS: PANTOPRAZOLE 40MG VIAL IV SCH (08:38)
[2022-10-09] MEDS: INSULIN LISPRO (NovoLOG) PER UNIT SC SCH ×4 (08:38→23:53)
[2022-10-09] MEDS: LEVEMIR (INSULIN DETEMIR) 1 UNITS/0.01ML SC SCH (08:39)
[2022-10-09] MEDS: EZETIMIBE 10MG TABLET (ZETIA) PO SCH (08:39)
[2022-10-09] MEDS: ROSUVASTATIN 10 MG TAB (CRESTOR) PO SCH (08:39)
[2022-10-09] MEDS: KCL 20MEQ IN D5/0.45NS 1000ML 1,000 ML IV SCH ×2 (08:53→17:18)
[2022-10-09] MEDS ORDERED: GLUCAGON INJ 1MG VIAL SC PRN (13:25)
[2022-10-09] MEDS ORDERED: GLUCOSE 4GM CHEW TABLET PO PRN (13:25)
[2022-10-09] MEDS ORDERED: DEXTROSE 50% 50ML SYRINGE IV PRN (13:25)
[2022-10-09] MEDS: METOPROLOL SUCC (TopROL XL) 50MG **XL** TAB PO SCH (18:14)
[2022-10-10] VITALS (8 sets, daily range): BP systolic 148–184; BP diastolic 80–110
[2022-10-10] MEDS: HYDROMORPHONE HCL 0.5 MG/ 0.5 ML SYRINGE IV PRN ×4 (04:08→19:18)
[2022-10-10] MEDS: KCL 20MEQ IN D5/0.45NS 1000ML 1,000 ML IV SCH ×3 (04:09→23:35)
[2022-10-10] MEDS: cefTRIAXone SOD 1 GM in D5W MINI-BAG PLUS 50 ML IV SCH (04:09)
[2022-10-10 04:38] LABS: BASO % 0.3 % (0.0-1.0); EOS # 0.1 10^3/uL (0.0-0.5); EOS % 0.4 % (0.0-3.0); HEMATOCRIT 38.8 % (42.0-52.0); HEMOGLOBIN 12.6 g/dl (13.5-17.5); LYMPH # 1.2 10^3/uL (1.5-5.0); LYMPH % 8.9 % (24.0-44.0); MEAN CORPUSCULAR HEMOGLOBIN 29.4 pg (27.0-33.0); MEAN CORPUSCULAR HGB CONC 32.5 g/dl (32.0-36.5); MEAN CORPUSCULAR VOLUME 90.7 fl (80.0-96.0); MONO % 15.3 % (2.0-8.0); NEUTROPHILS # 10.1 10^3/uL (1.5-8.5); NEUTROPHILS % 74.5 % (36.0-66.0); PLATELET COUNT, AUTOMATED 177 10^3/uL (150-450); RED BLOOD COUNT 4.28 10^6/uL (4.30-6.10); WHITE BLOOD COUNT 13.5 10^3/uL (4.0-10.0)
[2022-10-10 05:00] LABS: MONO # 2.1 10^3/uL (0.0-0.8)
[2022-10-10 05:02] LABS: LIPASE 289 U/L (12-53)
[2022-10-10 05:04] LABS: BLOOD UREA NITROGEN 6 MG/DL (9-23); CALCIUM LEVEL 8.2 MG/DL (8.5-10.1); CARBON DIOXIDE LEVEL 18 MMOL/L (20-31); CHLORIDE LEVEL 100 MMOL/L (98-107); CREATININE FOR GFR 0.73 MG/DL (0.70-1.30); GLOMERULAR FILTRATION RATE > 60.0 (>56); GLUCOSE, FASTING 131 MG/DL (60-100); MAGNESIUM LEVEL 1.9 MG/DL (1.8-2.4); POTASSIUM SERUM 4.1 MMOL/L (3.5-5.1); SODIUM LEVEL 134 MMOL/L (136-145)
[2022-10-10] MEDS: INSULIN LISPRO (NovoLOG) PER UNIT SC SCH ×4 (05:21→23:35)
[2022-10-10] MEDS: HEPARIN SOD (PORCINE) 5000UNITS/ML 1ML VIAL/SYRINGE SC SCH ×3 (05:21→21:06)
[2022-10-10] MEDS: EZETIMIBE 10MG TABLET (ZETIA) PO SCH (08:57)
[2022-10-10] MEDS: ROSUVASTATIN 10 MG TAB (CRESTOR) PO SCH (08:57)
[2022-10-10] MEDS: METOPROLOL SUCC (TopROL XL) 50MG **XL** TAB PO SCH ×2 (08:57→21:06)
[2022-10-10] MEDS: PANTOPRAZOLE 40MG VIAL IV SCH (08:58)
[2022-10-10] MEDS: LEVEMIR (INSULIN DETEMIR) 1 UNITS/0.01ML SC SCH (08:58)
[2022-10-10] MEDS ORDERED: amLODIPine 5 MG TAB PO ONE (16:25)
[2022-10-10] MEDS ORDERED: lisinopriL 5 MG TAB PO ONE (20:00)
[2022-10-11] VITALS (7 sets, daily range): BP systolic 146–189; BP diastolic 88–102
[2022-10-11] MEDS: HYDROMORPHONE HCL 0.5 MG/ 0.5 ML SYRINGE IV PRN ×5 (03:27→22:28)
[2022-10-11 04:48] LABS: BASO % 0.3 % (0.0-1.0); EOS # 0.1 10^3/uL (0.0-0.5); EOS % 0.5 % (0.0-3.0); HEMATOCRIT 38.8 % (42.0-52.0); HEMOGLOBIN 12.6 g/dl (13.5-17.5); LYMPH % 7.6 % (24.0-44.0); MEAN CORPUSCULAR HEMOGLOBIN 29.1 pg (27.0-33.0); MEAN CORPUSCULAR HGB CONC 32.5 g/dl (32.0-36.5); MEAN CORPUSCULAR VOLUME 89.6 fl (80.0-96.0); MONO % 18.9 % (2.0-8.0); NEUTROPHILS # 9.8 10^3/uL (1.5-8.5); NEUTROPHILS % 71.7 % (36.0-66.0); PLATELET COUNT, AUTOMATED 229 10^3/uL (150-450); RED BLOOD COUNT 4.33 10^6/uL (4.30-6.10); WHITE BLOOD COUNT 13.6 10^3/uL (4.0-10.0)
[2022-10-11 05:05] LABS: MONO # 2.6 10^3/uL (0.0-0.8)
[2022-10-11 05:08] LABS: LIPASE 334 U/L (12-53)
[2022-10-11 05:10] LABS: BLOOD UREA NITROGEN 5 MG/DL (9-23); CALCIUM LEVEL 8.6 MG/DL (8.5-10.1); CARBON DIOXIDE LEVEL 20 MMOL/L (20-31); CHLORIDE LEVEL 99 MMOL/L (98-107); CREATININE FOR GFR 0.74 MG/DL (0.70-1.30); GLOMERULAR FILTRATION RATE > 60.0 (>56); GLUCOSE, FASTING 164 MG/DL (60-100); MAGNESIUM LEVEL 1.8 MG/DL (1.8-2.4); POTASSIUM SERUM 3.9 MMOL/L (3.5-5.1); SODIUM LEVEL 134 MMOL/L (136-145)
[2022-10-11] MEDS: INSULIN LISPRO (NovoLOG) PER UNIT SC SCH ×4 (05:25→20:07)
[2022-10-11] MEDS: HEPARIN SOD (PORCINE) 5000UNITS/ML 1ML VIAL/SYRINGE SC SCH ×3 (05:26→21:09)
[2022-10-11] MEDS ORDERED: ACETAMINOPHEN TAB 650MG DOSE (2X325MG) PO ONE (06:00)
[2022-10-11] MEDS: EZETIMIBE 10MG TABLET (ZETIA) PO SCH (08:53)
[2022-10-11] MEDS: KCL 20MEQ IN D5/0.45NS 1000ML 1,000 ML IV SCH ×2 (08:53→18:23)
[2022-10-11] MEDS: LEVEMIR (INSULIN DETEMIR) 1 UNITS/0.01ML SC SCH (08:54)
[2022-10-11] MEDS: ROSUVASTATIN 10 MG TAB (CRESTOR) PO SCH (08:55)
[2022-10-11] MEDS: PANTOPRAZOLE 40MG VIAL IV SCH (08:55)
[2022-10-11] MEDS: METOPROLOL SUCC (TopROL XL) 50MG **XL** TAB PO SCH ×2 (08:56→20:06)
[2022-10-11] MEDS ORDERED: amLODIPine 5 MG TAB PO SCH (09:00)
[2022-10-12] MEDS: HYDROmorphone HCL 2MG/ML 1ML VIAL IV PRN ×4 (03:14→20:47)
[2022-10-12] MEDS: KCL 20MEQ IN D5/0.45NS 1000ML 1,000 ML IV SCH (03:56)
[2022-10-12 04:00] VITALS: BP 155/99
[2022-10-12 04:58] LABS: BASO # 0.1 10^3/uL (0.0-0.2); BASO % 0.6 % (0.0-1.0); EOS # 0.1 10^3/uL (0.0-0.5); EOS % 0.6 % (0.0-3.0); HEMATOCRIT 38.1 % (42.0-52.0); HEMOGLOBIN 12.7 g/dl (13.5-17.5); LYMPH % 7.5 % (24.0-44.0); MEAN CORPUSCULAR HEMOGLOBIN 29.4 pg (27.0-33.0); MEAN CORPUSCULAR HGB CONC 33.3 g/dl (32.0-36.5); MEAN CORPUSCULAR VOLUME 88.2 fl (80.0-96.0); MONO % 22.3 % (2.0-8.0); NEUTROPHILS # 8.7 10^3/uL (1.5-8.5); NEUTROPHILS % 67.4 % (36.0-66.0); PLATELET COUNT, AUTOMATED 291 10^3/uL (150-450); RED BLOOD COUNT 4.32 10^6/uL (4.30-6.10); WHITE BLOOD COUNT 12.9 10^3/uL (4.0-10.0)
[2022-10-12 05:21] LABS: MONO # 2.9 10^3/uL (0.0-0.8)
[2022-10-12 05:24] LABS: BLOOD UREA NITROGEN 6 MG/DL (9-23); CALCIUM LEVEL 9.1 MG/DL (8.5-10.1); CARBON DIOXIDE LEVEL 25 MMOL/L (20-31); CHLORIDE LEVEL 103 MMOL/L (98-107); CREATININE FOR GFR 0.85 MG/DL (0.70-1.30); GLOMERULAR FILTRATION RATE > 60.0 (>56); GLUCOSE, FASTING 270 MG/DL (60-100); MAGNESIUM LEVEL 1.9 MG/DL (1.8-2.4); SODIUM LEVEL 136 MMOL/L (136-145)
[2022-10-12] MEDS: HEPARIN SOD (PORCINE) 5000UNITS/ML 1ML VIAL/SYRINGE SC SCH ×3 (06:00→21:00)
[2022-10-12 08:00] VITALS: BP 163/92
[2022-10-12] MEDS: EZETIMIBE 10MG TABLET (ZETIA) PO SCH (08:13)
[2022-10-12] MEDS: ROSUVASTATIN 10 MG TAB (CRESTOR) PO SCH (08:13)
[2022-10-12] MEDS: PANTOPRAZOLE 40MG VIAL IV SCH (08:13)
[2022-10-12] MEDS: METOPROLOL SUCC (TopROL XL) 50MG **XL** TAB PO SCH ×2 (08:14→20:46)
[2022-10-12] MEDS: INSULIN LISPRO (NovoLOG) PER UNIT SC SCH ×4 (08:15→20:59)
[2022-10-12] MEDS: LEVEMIR (INSULIN DETEMIR) 1 UNITS/0.01ML SC SCH (08:15)
[2022-10-12] MEDS: SENOKOT S TAB PO SCH ×2 (13:55→20:36)
[2022-10-12 14:00] VITALS: BP 152/93
[2022-10-12 15:50] VITALS: BP 158/99
[2022-10-12] MEDS: HYDROMORPHONE HCL 0.5 MG/ 0.5 ML SYRINGE IV PRN (16:56)
[2022-10-12 20:35] VITALS: BP 157/97
[2022-10-13] VITALS (8 sets, daily range): BP systolic 78–114; BP diastolic 60–85
[2022-10-13] MEDS: HEPARIN SOD (PORCINE) 5000UNITS/ML 1ML VIAL/SYRINGE SC SCH ×3 (05:40→19:47)
[2022-10-13] MEDS: HYDROmorphone HCL 2MG/ML 1ML VIAL IV PRN (05:41)
[2022-10-13 06:22] LABS: BASO # 0.1 10^3/uL (0.0-0.2); BASO % 0.8 % (0.0-1.0); EOS # 0.1 10^3/uL (0.0-0.5); EOS % 0.9 % (0.0-3.0); HEMATOCRIT 41.4 % (42.0-52.0); HEMOGLOBIN 13.8 g/dl (13.5-17.5); LYMPH # 2.3 10^3/uL (1.5-5.0); LYMPH % 17.3 % (24.0-44.0); MEAN CORPUSCULAR HEMOGLOBIN 29.1 pg (27.0-33.0); MEAN CORPUSCULAR HGB CONC 33.3 g/dl (32.0-36.5); MEAN CORPUSCULAR VOLUME 87.2 fl (80.0-96.0); MONO % 23.3 % (2.0-8.0); NEUTROPHILS # 7.3 10^3/uL (1.5-8.5); NEUTROPHILS % 53.6 % (36.0-66.0); PLATELET COUNT, AUTOMATED 384 10^3/uL (150-450); RED BLOOD COUNT 4.75 10^6/uL (4.30-6.10); WHITE BLOOD COUNT 13.5 10^3/uL (4.0-10.0)
[2022-10-13 06:33] LABS: LIPASE 375 U/L (12-53)
[2022-10-13 06:37] LABS: BLOOD UREA NITROGEN 9 MG/DL (9-23); CALCIUM LEVEL 9.8 MG/DL (8.5-10.1); CARBON DIOXIDE LEVEL 25 MMOL/L (20-31); CHLORIDE LEVEL 98 MMOL/L (98-107); CREATININE FOR GFR 1.02 MG/DL (0.70-1.30); GLOMERULAR FILTRATION RATE > 60.0 (>56); GLUCOSE, FASTING 250 MG/DL (60-100); POTASSIUM SERUM 3.7 MMOL/L (3.5-5.1); SODIUM LEVEL 135 MMOL/L (136-145)
[2022-10-13 06:39] LABS: MONO # 3.2 10^3/uL (0.0-0.8)
[2022-10-13] MEDS ORDERED: HYDROMORPHONE HCL 0.5 MG/ 0.5 ML SYRINGE IV PRN (07:35)
[2022-10-13] MEDS: METOPROLOL SUCC (TopROL XL) 50MG **XL** TAB PO SCH (08:31)
[2022-10-13] MEDS: ROSUVASTATIN 10 MG TAB (CRESTOR) PO SCH (08:31)
[2022-10-13] MEDS: SENOKOT S TAB PO SCH ×3 (08:31→19:47)
[2022-10-13] MEDS: EZETIMIBE 10MG TABLET (ZETIA) PO SCH (08:31)
[2022-10-13] MEDS: INSULIN LISPRO (NovoLOG) PER UNIT SC SCH ×4 (08:32→21:46)
[2022-10-13] MEDS: PANTOPRAZOLE 40MG VIAL IV SCH (08:32)
[2022-10-13] MEDS ORDERED: LEVEMIR (INSULIN DETEMIR) 1 UNITS/0.01ML SC SCH (09:00)
[2022-10-13] MEDS ORDERED: IBUPROFEN 400MG TAB PO PRN (10:20)
[2022-10-13] MEDS ORDERED: oxyCODONE 5MG TAB PO PRN (10:20)
[2022-10-13] MEDS: oxyCODONE 5MG TAB PO PRN ×2 (12:31→18:37)
[2022-10-13] MEDS: ACETAMINOPHEN 500 MG TAB PO SCH ×2 (12:32→17:49)
[2022-10-14] MEDS: ACETAMINOPHEN 500 MG TAB PO SCH ×3 (00:01→10:23)
[2022-10-14] MEDS: oxyCODONE 5MG TAB PO PRN (03:39)
[2022-10-14] MEDS: HEPARIN SOD (PORCINE) 5000UNITS/ML 1ML VIAL/SYRINGE SC SCH (05:50)
[2022-10-14 05:57] VITALS: BP 119/75
[2022-10-14 06:08] LABS: HEMATOCRIT 37.8 % (42.0-52.0); HEMOGLOBIN 12.6 g/dl (13.5-17.5); MEAN CORPUSCULAR HEMOGLOBIN 28.6 pg (27.0-33.0); MEAN CORPUSCULAR HGB CONC 33.3 g/dl (32.0-36.5); MEAN CORPUSCULAR VOLUME 85.9 fl (80.0-96.0); PLATELET COUNT, AUTOMATED 411 10^3/uL (150-450); WHITE BLOOD COUNT 10.5 10^3/uL (4.0-10.0)
[2022-10-14 06:37] LABS: BLOOD UREA NITROGEN 9 MG/DL (9-23); CARBON DIOXIDE LEVEL 27 MMOL/L (20-31); CHLORIDE LEVEL 96 MMOL/L (98-107); CREATININE FOR GFR 1.18 MG/DL (0.70-1.30); GLOMERULAR FILTRATION RATE > 60.0 (>56); GLUCOSE, FASTING 292 MG/DL (60-100); MAGNESIUM LEVEL 1.9 MG/DL (1.8-2.4); POTASSIUM SERUM 3.5 MMOL/L (3.5-5.1); SODIUM LEVEL 133 MMOL/L (136-145)
[2022-10-14 06:45] LABS: EOSINOPHILS 5 % (0-3); LYMPHOCYTES 10 % (16-44); METAMYELOCYTES 2 % (0-0); MONOCYTES 20 % (0-5); NEUTROPHILS 62 % (28-66)
[2022-10-14 06:46] LABS: PLATELET CLUMPS SMALL AMT; PLATELET ESTIMATE INCREASED (NORMAL)
[2022-10-14] MEDS ORDERED: IBUPROFEN 400MG TAB PO PRN (07:35)
[2022-10-14] MEDS ORDERED: IBUPROFEN 800 MG TAB PO PRN (07:40)
[2022-10-14] MEDS ORDERED: LEVEMIR (INSULIN DETEMIR) 1 UNITS/0.01ML SC SCH (09:00)
[2022-10-14] MEDS ORDERED: PANTOPRAZOLE 40MG TAB (PROTONIX) PO SCH (09:00)
[2022-10-14] MEDS ORDERED: METOPROLOL SUCC (TopROL XL) 50MG **XL** TAB PO SCH (09:00)
[2022-10-14] MEDS ORDERED: LANC30MI XX (10:12)
[2022-10-14] MEDS ORDERED: GLUC1TES2 XX (10:12)
[2022-10-14] MEDS ORDERED: INSU100I38 SQ (10:12)
[2022-10-14] MEDS ORDERED: DEXT4TAB83 PO (10:12)
[2022-10-14] MEDS ORDERED: IBUP-1114 PO (10:12)
[2022-10-14] MEDS ORDERED: METO200T28 PO (10:12)
[2022-10-14] MEDS ORDERED: AMLO1TAB25 PO (10:12)
[2022-10-14] MEDS ORDERED: BLOOKIT21 XX (10:12)
[2022-10-14] MEDS ORDERED: ALCOPAD25 TOP (10:12)
[2022-10-14] MEDS ORDERED: OXYC-517 PO (10:12)
[2022-10-14] MEDS ORDERED: PANT40TA29 PO (10:12)
[2022-10-14] MEDS ORDERED: PEN1MIS21 SC (10:12)
[2022-10-14] MEDS ORDERED: SENN-52 PO (10:12)
[2022-10-14] MEDS ORDERED: LISI40TA4 PO (10:12)
[2022-10-14] MEDS ORDERED: METF10004 PO (10:17)
[2022-10-14] MEDS ORDERED: NARC1SPR NARES (10:22)
[2022-10-14] MEDS: EZETIMIBE 10MG TABLET (ZETIA) PO SCH (10:22)
[2022-10-14] MEDS: INSULIN LISPRO (NovoLOG) PER UNIT SC SCH ×2 (10:22→12:39)
[2022-10-14 10:25] VITALS: BP 133/97
[2022-10-14] MEDS: SENOKOT S TAB PO SCH (10:26)
[2022-10-14 10:43] VITALS: BP 133/97
[2022-10-14] MEDS: ROSUVASTATIN 10 MG TAB (CRESTOR) PO SCH (11:27)
[2022-10-15] MEDS ORDERED: OXYC-517 PO (12:58)
== END 2022-10-14 12:51 | disposition home health service (06) | DRG 438 ==
LOC: M ED 22:17 → M ED INP 10-07 02:55 → M ICU 10-07 03:55 → M MSPAV 10-12 15:40
PROVIDERS: ADMIT Internal Medicine Pulmonary Disease; ATTEND Student in an Organized Health Care Education/Training Program
DX: K85.30 Drug induced acute pancreatitis without necrosis or infection (principal); E11.10 Type 2 diabetes mellitus with ketoacidosis without coma; K29.71 Gastritis, unspecified, with bleeding; N17.9 Acute kidney failure, unspecified; I10 Essential (primary) hypertension; E78.5 Hyperlipidemia, unspecified; E11.65 Type 2 diabetes mellitus with hyperglycemia; E87.5 Hyperkalemia; M81.0 Age-related osteoporosis without current pathological fracture; E55.9 Vitamin D deficiency, unspecified; K21.9 Gastro-esophageal reflux disease without esophagitis; G47.00 Insomnia, unspecified; F10.20 Alcohol dependence, uncomplicated; E86.0 Dehydration; K76.0 Fatty (change of) liver, not elsewhere classified; N40.0 Benign prostatic hyperplasia without lower urinary tract symptoms; I95.1 Orthostatic hypotension; K42.9 Umbilical hernia without obstruction or gangrene; K57.30 Diverticulosis of large intestine without perforation or abscess without bleeding; T38.3X5A Adverse effect of insulin and oral hypoglycemic [antidiabetic] drugs, initial encounter; M25.572 Pain in left ankle and joints of left foot; Z79.82 Long term (current) use of aspirin; Z79.84 Long term (current) use of oral hypoglycemic drugs; Z79.899 Other long term (current) drug therapy

== ENCOUNTER → 2022-12-03 | Outpatient (CLI) | payer OTHER ==
[~2022-12-03] MED LIST changes: +ALCOPAD25 TOP; +ALEN35TA56 PO; +AMLO1TAB25 PO; +ASPI-161 PO; +BLOOKIT21 XX; +CALC250T PO; +CINN500C2 PO; +CVS1CRE56 EXT; +DEXT4TAB15 PO; +DEXT4TAB83 PO; +DHEA50CA4 PO; +FISH10002 PO; +GLUC1TES2 XX; +IBUP-1114 PO; +INSU100I38 SQ; +JARD1TAB3 PO; +LANC30MI XX; +LANO454C TOP; +MAGN400T2 PO; +METO200T28 PO; +MICO85PO7 TOP; +NARC1SPR NARES; +NESI25TA PO; +OMEP-173 PO; +OXYC-517 PO; +PANT40TA29 PO; +PEN1MIS21 SC; +PERI12LIQ SSP; +REFR0.5D8 OU; +SENN-52 PO; +VITA100093 PO; +VITMTA PO; +ZETI10TA16 PO
== END ==
LOC: M SLEEP 20:00
PROVIDERS: ATTEND Internal Medicine
DX: G47.33 Obstructive sleep apnea (adult) (pediatric) (principal)

== ENCOUNTER → 2023-02-09 | Outpatient (REF) | payer OTHER ==
[~2023-02-09] MED LIST changes: -K-TA10TA2 PO; +POTA-165 PO
[2023-02-09 18:24] LABS: CREATININE, URINE 60.4 MG/DL
== END ==
LOC: M LAB REF 16:58
PROVIDERS: ATTEND Nurse Practitioner Family
DX: E11.65 Type 2 diabetes mellitus with hyperglycemia (principal)

== ENCOUNTER 2025-04-03 14:38 | Emergency (ER) | payer OTHER ==
[~2025-04-03] VITALS: Ht 170.2 cm; Wt 90.9 kg
[~2025-04-03 14:38] MED LIST changes: -ASPI-161 PO; +ASPI-615 PO; +CLOT15CR4 EXT; -CVS1CRE56 EXT; -DEXT4TAB15 PO; +DEXT4TAB9 PO; +EZET10TA58 PO; -IBUP-1022 PO; +IBUP600T42 PO; +LISI40TA10 PO; -LISI40TA4 PO; +METO200T15 PO; -METO200T28 PO; +PEN-308 SC; -PEN1MIS21 SC; -ROSU40TA4 PO; +ROSU40TA81 PO; -ZETI10TA16 PO
[2025-04-03 15:34] LABS: KETONE, URINE AUTO RFX 2+ mg/dL (NEGATIVE); LEUKOCYTE ESTERASE UR AUTO RFX NEGATIVE (NEGATIVE); MUCUS, URINE RFX SMALL (NEGATIVE); NITRITE, URINE AUTO RFX NEGATIVE (NEGATIVE); RBC, URINE AUTO RFX 0 /HPF (0-3); SQUAM EPITHELIAL CELL UR AURFX 1 /HPF (0-6); WBC, URINE AUTO RFX 2 /HPF (0-3)
[2025-04-03 16:14] LABS: BASO # 0.0 10^3/uL (0.0-0.2); BASO % 0.2 % (0.0-1.0); EOS # 0.0 10^3/uL (0.0-0.5); EOS % 0.0 % (0.0-3.0); LYMPH # 0.6 10^3/uL (1.5-5.0); LYMPH % 4.7 % (24.0-44.0); MONO # 1.3 10^3/uL (0.0-0.8); MONO % 9.5 % (2.0-8.0); NEUTROPHILS # 11.7 10^3/uL (1.5-8.5); NEUTROPHILS % 85.1 % (36.0-66.0); PLATELET COUNT, AUTOMATED 272 10^3/uL (150-450)
[2025-04-03 16:34] LABS: ALT/SGPT 61.0 U/L (7.0-40); AST/SGOT 95.0 U/L (<34)
[2025-04-03] MEDS ORDERED: ISOVUE-370 76% 100 ML VIAL As Ordered ONE (17:49)
[2025-04-03] MEDS: NS (Normal Saline) 0.9% 1,000 ML IV ONE (17:51)
[2025-04-03] MEDS: LIDOCAINE 2% 5 ML JELLY UROJET TOP ONE (18:20)
[2025-04-03] MEDS: ONDANSETRON 4MG 2ML VIAL IV ONE (19:24)
[2025-04-03 19:25] VITALS: TEMP 97
[2025-04-03] MEDS: MORPHINE 4 MG/ML 1 ML VIAL IV ONE (19:25)
[2025-04-03 19:57] VITALS: BP 158/95; O2SAT 98
[2025-04-03] MEDS ORDERED: NAPR-837 PO (20:57)
== END 2025-04-03 21:08 | disposition home or self-care (01) ==
LOC: M ED 14:38
DX: M54.32 Sciatica, left side (principal); N40.2 Nodular prostate without lower urinary tract symptoms; K76.0 Fatty (change of) liver, not elsewhere classified; J98.11 Atelectasis; E11.9 Type 2 diabetes mellitus without complications; I10 Essential (primary) hypertension; E78.5 Hyperlipidemia, unspecified; K21.9 Gastro-esophageal reflux disease without esophagitis; Z79.1 Long term (current) use of non-steroidal anti-inflammatories (NSAID); Z79.4 Long term (current) use of insulin; Z79.84 Long term (current) use of oral hypoglycemic drugs; Z79.899 Other long term (current) drug therapy; Z79.810 Long term (current) use of selective estrogen receptor modulators (SERMs)
CPT/HCPCS: 71046; 72131; 74177; 80047; 80076; 81001; 83605; 83690; 85025; 85652; 86140; 87040; 87486; 87581; 87633; 87798; 93005; 93041; 94760; 96374; 96375; 99285; J2405; Q9967